=== PATIENT | male | born 1985 | race Asian ===

== ENCOUNTER 2024-08-25 11:27 | Emergency (ER) | payer SELFPAY ==
[~2024-08-25] VITALS: Ht 165.1 cm; Wt 47.5 kg
[2024-08-25] MEDS: dexamethasone sod phosphate 10mg/ml inj IV STA (13:03)
[2024-08-25 13:45] LABS: BASOPHILS % (AUTO) 0.1 % (0-1); EOSINOPHILS % (AUTO) 0.1 % (0-6); HEMATOCRIT 43.1 % (42.0-52.0); HEMOGLOBIN 15.1 g/dl (14.0-17.9); LYMPHOCYTES # (AUTO) 1.1 X10'3 (1.1-4.8); LYMPHOCYTES % (AUTO) 9.4 % (21-51); MEAN CORPUSCULAR HEMOGLOBIN 33.2 PG (27.0-31.0); MEAN CORPUSCULAR VOLUME 94.7 FL (78-98); MEAN PLATELET VOLUME 7.7 FL (7.4-10.4); MONOCYTES % (AUTO) 8.7 % (2-12); NEUTROPHILS # (AUTO) 9.2 X10'3 (1.8-7.7); NEUTROPHILS % (AUTO) 81.7 % (42-75); PLATELET COUNT 161 X10'3 (140-440); RED BLOOD COUNT 4.55 X10'6 (4.70-6.10); RED CELL DISTRIBUTION WIDTH 13.1 % (11.5-14.5); WHITE BLOOD COUNT 11.2 X10'3 (4.5-11.0)
[2024-08-25] MEDS: ampicillin/sulbac 3gm/NS 100ml 100 ML IV STA (13:51)
[2024-08-25 14:05] LABS: ALANINE AMINOTRANSFERASE 27 U/L (12-78); ALBUMIN 3.6 G/DL (3.4-5.0); ALBUMIN/GLOBULIN RATIO 0.8 (1.1-1.5); ALKALINE PHOSPHATASE 76 IU/L (46-116); ANION GAP 8 (8-16); ASPARTATE AMINO TRANSFERASE 17 U/L (10-37); BILIRUBIN,TOTAL 1.5 MG/DL (0.1-1.0); BLOOD UREA NITROGEN 15 MG/DL (7-18); BUN/CREATININE RATIO 16.7 (10.0-20.0); CALCIUM 8.6 MG/DL (8.5-10.1); CHLORIDE 104 MMOL/L (99-107); GLUCOSE 83 MG/DL (70-104); POTASSIUM 3.7 MMOL/L (3.5-5.1); SODIUM 140 MMOL/L (135-145); TOTAL CARBON DIOXIDE 28.5 MMOL/L (24-32); eCRCL 73 ML/MIN; eGFR > 90 ML/MIN
[2024-08-25] MEDS ORDERED: iohexol 300mg/ml 100ml inj. ONE (14:16)
[2024-08-25] MEDS: ketorolac trometh 30MG/ML vial 30 MG/ML VIAL IV STA (14:52)
[2024-08-25] MEDS: LIDOcaine 1% W/epiNEPHrine 1:100,000 20ml vial SQ ONE (15:10)
[2024-08-25] MEDS ORDERED: PRED20TA PO (16:05)
[2024-08-25] MEDS ORDERED: CLIN300C71 PO (16:05)
[2024-08-25] MEDS ORDERED: IBUP-1986 PO (16:06)
[2024-08-25 16:16] VITALS: BP 118/70; PULSE 78; RESP 18; TEMP 98.7; O2SAT 98
== END 2024-08-25 16:18 | disposition home or self-care (01) ==
LOC: ER 11:28
DX: J36 Peritonsillar abscess (principal); Z79.1 Long term (current) use of non-steroidal anti-inflammatories (NSAID); Z79.52 Long term (current) use of systemic steroids
CPT/HCPCS: 36415; 70491; 80053; 85025; 96365; 96375; 99285; J0295; J1100; J1885; Q9967; 74177; 96374